=== PATIENT | male | born 1945 ===

== ENCOUNTER 2025-01-03 11:44 | Inpatient (IN) ==
--- NOTE | 2025-01-03 12:05 | Emergency Department Note ---
Impression & Plan LeFort I fracture, Contusion of face, Anemia ED Provider Note NAME: DEJA BARR AGE: 79 SEX: M : 1945 ARRIVES VIA: Walk-In INFORMANT: Patient ED PROVIDER(S): Ty Hawk DO CHIEF COMPLAINT: [place] I fracture HPI: Patient is a 79-year-old male who presents to the ER following a fall on 30 December. He fell onto his face while [place] of the [place] in [facility]. He was seen evaluated found to have multiple facial fractures. He eventually was able to fly home and he was instructed once he got home to go to the ER. He came in last night and was found to have a [place] I fracture following CTs being performed. Current recommendation was to go to surgery. He notes he had to get home to take care of several things and then would come back. He came back today. He notes he only has pain when he tries to bite down and put his mouth/teeth together. ADDITIONAL HISTORY OBTAINED: Per HPI Chronic Medical/Social Conditions Affecting Care: Per HPI PAST MEDICAL HISTORY:See Below PAST SURGICAL HISTORY:See Below FAMILY HISTORY:See Below SOCIAL HISTORY:See Below HOME MEDICATIONS:See Below ALLERGIES:See Below VITALS:See Below PHYSICAL EXAMINATION: GENERAL: Sitting up in bed, alert, well appearing, well nourished, no distress, non-toxic EYE EXAM: normal conjunctiva. PERRL and EOM's grossly intact. FACE: Bruising over the left lower jaw track down the left side neck OROPHARYNX: no exudate, no erythema, lips, buccal mucosa, and tongue normal and mucous membranes are moist NECK: supple, no nuchal rigidity, no adenopathy, non-tender LUNGS: Clear to auscultation. Normal chest wall mechanics HEART: no murmurs, S1 normal and S2 normal ABDOMEN: abdomen soft, non-tender, normo-active bowel sounds, no masses, no rebound or guarding. SKIN: no rashes and no bruising UPPER EXTREMITIES: upper extremities are grossly normal. LOWER EXTREMITIES: No pitting edema. NEURO EXAM: Normal sensorium, cranial nerves II-XII grossly intact, normal speech, no gross weakness of arms, no gross weakness of legs. MEDICAL DECISION MAKING: Patient is a 79-year-old male who was seen evaluated yesterday and found to have a [place] fracture. He was seen by Dr. Krish Alexander. Recommendation was to go to the OR. He wanted to come back today as he had just gotten home from a 12- day trip yesterday. He came back in. I did notify Dr. Alexander. Blood work was obtained. Labs show mild leukopenia at 4.3 and a mild anemia at 10.6. BMP with LFTs bilirubin is unremarkable. Case was discussed with the hospitalist Dr. Amos for further evaluation management treatment. Consults/Care Managements Discussions: Per [facility] Triage Nursing notes reviewed. Limited review of prior medical records performed Vital Signs: reviewed and remarkable for no significant abnormalities Differential diagnosis: Differential diagnoses include major intracranial, cervical, spinal, thoracic, abdominal, pelvic and neurologic injury. Fracture, contusion, sprain, strain, laceration, abrasions included as well. ER treatment provided: See below Diagnostics interpreted by me include EKG and cardiac monitoring as listed below: -Cardiac Monitoring: An order was placed for continuous cardiac monitoring. The monitor shows a rate of 70 with sinus rhythm. -ECG: Sinus rhythm rate 69 Normal axis No PVCs QTc 390 Septal Q waves -Laboratory studies:Interpreted by me as stated above in MDM and shown below. Imaging studies: Xrays: As interpreted by me:none CTs show: Reviewed from yesterday Procedures:none Critical Care: None Past Med/Surg History Problem List (Updated 01/03/25 @ 13:12 by Ty Hawk DO) Anemia (Acute) Contusion of face (Acute) LeFort I fracture (Acute) Hypertension (Chronic) Diabetes mellitus, type II (Chronic) Dyslipidemia (Chronic) LAWSON (obstructive sleep apnea) (Chronic) Chest pain Social History Smoking Status: Never smoker Preferred Language: Cymraes Feels Safe at Home: Yes Allergies Allergies Allergy/AdvReac Type Severity Reaction Status Date / Time No Known Allergies Allergy Unverified 01/02/25 17:15 Home Meds Home Medications Medication Instructions Recorded Confirmed aspirin 81 mg tablet,delayed 81 mg PO QAM ##0 11/25/12 01/03/25 release atenolol 25 mg tablet 12.5 mg PO HS #0 tabs 11/25/12 01/03/25 metformin 500 mg tablet,extended 500 mg PO BID #0 tabs 11/25/12 01/03/25 release 24 hr [id number] 300 mcg-K 60 1 tab PO QAM #0 tabs 11/25/12 01/03/25 mcg-lycop 600 mcg-lutein 300 mcg tablet (Centrum Silver Men) losartan 25 mg tablet 12.5 mg PO QDL 30 days #15 tabs 03/01/16 01/03/25 atorvastatin 40 mg tablet 40 mg PO HS 01/02/25 01/03/25 cyanocobalamin (vitamin B-12) 1,000 mcg PO QDL 01/02/25 01/03/25 1,000 mcg tablet (Vitamin B-12) empagliflozin 10 mg tablet 10 mg PO QAM 01/02/25 01/03/25 (Jardiance) nitroglycerin 0.4 mg sublingual 0.4 mg sublingual DIRECTED PRN 01/02/25 01/03/25 tablet Chest Pain Results & Data (ED) Vital Signs Vital Signs - 24 hr 01/03/25 11:50 Temperature 36.2 C L Temperature Source Temporal Artery Scan Pulse Rate 71 Respiratory Rate 18 Respiratory Effort / Characteristics Non-Labored Spontaneous Respiratory Depth Normal Respiratory Pattern Regular Blood Pressure 123/65 Blood Pressure Mean 84 Pulse Oximetry 100 Oxygen Delivery Method Room Air Sepsis Recent Fever Within 48 Hours No Sepsis New/Unexplained Change in Mental Status N/A Sepsis Action Taken by Nursing No Action Required Laboratory Data 01/03/25 12:20 01/03/25 12:20 Lab Results 01/03/25 Range/Units 12:20 WBC 4.39 L (4.8-10.8) K/ul RBC 4.03 L (4.70-6.10) M/uL Hgb 10.6 L (14.0-18.0) g/dl Hct 33.7 L (42.0-52.0) % MCV 83.6 (80.0-100.0) fL MCH 26.3 (25.0-34.0) pg MCHC 31.5 L (32.0-36.0) g/dL RDW Std Deviation 44.3 (36.4-46.3) fL RDW Coeff of Johan 14.7 H (11.5-14.5) % Plt Count 155 (130-400) K/uL MPV 11.9 (9.4-12.4) fL Immature Gran % (Auto) 0.2 % Neut % (Auto) 64.5 % Lymph % (Auto) 21.9 % Crenshaw % (Auto) 10.0 % Eos % (Auto) 2.3 % Baso % (Auto) 1.1 % Neut # (Auto) 2.83 (1.40-6.50) K/uL Lymph # (Auto) 0.96 L (1.20-3.40) K/uL Crenshaw # (Auto) 0.44 (0.11-0.59) K/uL Eos # (Auto) 0.10 (0.00-0.50) K/uL Baso # (Auto) 0.05 (0.00-0.20) K/uL Immature Gran # (Auto) 0.01 (0.01-0.20) K/uL Sodium 134 L (136-145) mmol/L Potassium 4.2 (3.5-5.1) mmol/L Chloride 101 (98-107) mmol/L Carbon Dioxide 28 (21-32) mmol/L Anion Gap 5 (3-11) BUN 25 H (6-23) mg/dl Creatinine 1.27 (0.6-1.4) mg/dl Est Cr Clr Drug Dosing 34.9 ml/min eGFR 57.83 BUN/Creatinine Ratio 19.7 (10-20) Glucose 275 H (70-99(Fasting)) mg/dl Calcium 9.1 (8.6-10.3) mg/dl Total Bilirubin 0.4 (0.2-1.0) mg/dl AST 29 (13-39) U/L ALT 27 (7-52) U/L Alkaline Phosphatase 52 (34-104) U/L Total Protein 6.6 (6.0-8.3) gm/dl Albumin 3.6 (3.4-5.0) gm/dl Globulin 3.0 (2.5-4.0) gm/dl Albumin/Globulin Ratio 1.2 (0.9-2) Discharge Plan Visit Data Chief Complaint: Facial Injury/Pain Stated Complaint: [facility] GANESH REFERRAL ED Provider: Ty Hawk Discharge Problem: LeFort I fracture, Contusion of face, Anemia Condition: Fair Forms Stand Alone Forms: My [facility] Prescriptions Prescriptions: No Action aspirin 81 mg Tablet,Delayed Release (Dr/Ec) 81 mg PO QAM Qty: 0 Centrum Silver Men [phone] mcg Tablet 1 tab PO QAM Qty: 0 atenolol 25 mg Tablet 12.5 mg PO HS Qty: 0 metformin 500 mg Tablet Extended Release 24 Hr 500 mg PO BID Qty: 0 Rx Instructions: W/ Lunch and Dinner losartan 25 mg Tablet 12.5 mg PO QDL 30 Days Qty: 15 atorvastatin 40 mg tablet 40 mg PO HS cyanocobalamin (vitamin B-12) [Vitamin B-12] 1,000 mcg Tablet 1,000 mcg PO QDL nitroglycerin 0.4 mg tablet, sublingual 0.4 mg sublingual DIRECTED PRN (Reason: Chest Pain) Jardiance 10 mg tablet 10 mg PO QAM Referrals Referrals: Pam Barr MD [Primary Care Provider] - Discharge Problem: LeFort I fracture Qualifiers: Encounter type: initial encounter Fracture type: closed Qualified Code(s): S 02.411A - LeFort I fracture, initial encounter for closed fracture Contusion of face Qualifiers: Encounter type: initial encounter Qualified Code(s): S00.83XA - Contusion of other part of head, initial encounter Anemia Qualifiers: Anemia type: unspecified type Qualified Code(s): D64.9 - Anemia, unspecified
--- NOTE | 2025-01-03 12:43 | History & Physical Report ---
Date of Service January 03, 2025 Assessment & Plan (1) LeFort I fracture: Plan 79M with PMH including CAD, NIDDM, HLD, LAWSON not on CPAP, who presents with facial fracture. #LeFort I fx -Secondary to mechanical fall -CT confirming fracture -ED d/w surgery who plans for OR tomorrow Plan -For OR tomorrow. NPO after MN -Hold home ASA -Pre op clearance as below #Pre op evaluation -METS >3 -RCRI: 1; 1.1% major cardiac event -Patient is low risk for surgery -He has non obstructive CAD and is very concerned about his cardiac history, will ask cardio to evaluate -Waiting on EKG -Waiting on routine labs #CAD -History of balloon angioplasty in . No stent was placed -Recent [facility] 2024 in [place], non obstructive CAD per patient. no report available -TTE 04/05/24, normal EF -Follows with cardio as OP, appreciate input -Holding home ASA for OR tomorrow -Continue statin and atenolol #NIDDM -On jardiance and metformin BID -Holding metformin for now -SSI BGM ACHS #HLD #LAWSON, not on CPAP History of Present Illness Chief Complaint: LeFort I fracture Primary Care Provider: Pam Barr MD Mr. Barr is a pleasant 79M with PMH including CAD, NIDDM, HLD, LAWSON not on CPAP, who presents with facial fracture. Patient was in [facility] where he suffered a mechanical fall while going down the elevator. Denies prodromal symptoms. No LOC. He did land on his face. In [facility], he went to a trauma center and was evaluated by ENT who did not recommend surgery at that time. He immediately flew home and then presented to [facility] yesterday for second opinion. Yesterday, ED d/w surgery who recommended surgery. Patient was not ready for surgery and went home last evening. He presents today, now agreeable for surgery. Patient denies F/C, CP, palpitations, SOB, dyspnea, abd pain, N/V/D Allergies Allergy/AdvReac Type Severity Reaction Status Date / Time No Known Allergies Allergy Unverified 01/02/25 17:15 Home Medications Medication Instructions Recorded Confirmed Type aspirin 81 mg tablet,delayed 81 mg PO QAM ##0 11/25/12 01/03/25 History release atenolol 25 mg tablet 12.5 mg PO HS #0 tabs 11/25/12 01/03/25 History metformin 500 mg tablet,extended 500 mg PO BID #0 tabs 11/25/12 01/03/25 History release 24 hr ibbttcaz-ts-[id number] 300 mcg-K 60 1 tab PO QAM #0 tabs 11/25/12 01/03/25 History mcg-lycop 600 mcg-lutein 300 mcg tablet (Centrum Silver Men) losartan 25 mg tablet 12.5 mg PO QDL 30 days #15 tabs 03/01/16 01/03/25 History atorvastatin 40 mg tablet 40 mg PO HS 01/02/25 01/03/25 History cyanocobalamin (vitamin B-12) 1,000 mcg PO QDL 01/02/25 01/03/25 History 1,000 mcg tablet (Vitamin B-12) empagliflozin 10 mg tablet 10 mg PO QAM 01/02/25 01/03/25 History (Jardiance) nitroglycerin 0.4 mg sublingual 0.4 mg sublingual DIRECTED PRN 01/02/25 01/03/25 History tablet Chest Pain Past Med/Surg History Problem List Contusion of face (Acute) LeFort I fracture (Acute) Hypertension (Chronic) Diabetes mellitus, type II (Chronic) Dyslipidemia (Chronic) LAWSON (obstructive sleep apnea) (Chronic) Chest pain Social History Smoking Status: Never smoker Preferred Language: Togolese Feels Safe at Home: Yes Review of Systems Review of Systems: 14 point ROS neg Physical Exam Physical Exam: Vitals and labs reviewed General: Well appearing, NAD HEENT: EOMI, PERRLA. Ecchymoses over maxillary bone. no obvious deformity Neck: Supple Cardiac: RRR no rubs gallops or murmurs Lungs: CTA no rhonchi wheezing or rales Abd: S NT ND BS positive MSK: Full ROM. No obvious deformities Ext: No Edema cyanosis Skin: Warm, Dry Neuro: AOx3 No focal deficits. Psych: Normal Mood Results & Data Results & Data Vital Signs (Past 12 Hours) Vital Signs Temp Pulse Resp BP Pulse Ox O2 Del Method 01/03/25 11:50 36.2 C L 71 18 123/65 100 Room Air Diagnostic Findings CT SCAN OF THE FACIAL BONES WITHOUT IV CONTRAST CLINICAL HISTORY: Fall. Facial injury. COMPARISON STUDY: No priors TECHNIQUE: High-resolution CT scan of the facial bones is performed. Images are reviewed in the axial, sagittal, and coronal planes. IV contrast was not administered for this examination. A dose lowering technique was utilized adhering to the principles of ALARA. FINDINGS: The skeletal structures are osteopenia. There are comminuted bilateral pterygoid plate fractures. There is acute nondisplaced fracture through the anterior and posterior manning of the left maxillary sinus. This also involves the medial wall of the sinus. Acute fracture is also seen through the anterior, lateral, and medial wall of the right maxillary sinus. Fracture extends through the posterior aspect of the bony nasal septum. This is consistent with a LeFort I fracture. The bony orbits are intact and the orbital contents are within normal limits. The zygomatic arches and nasal bones are preserved. The mandible is intact and the temporomandibular joints are maintained. There are bilateral mastoid effusions. Blood products fill the left maxillary antrum. There is [id number] mucosal thickening in the right maxillary sinus as well as the ethmoid sinuses. Trace mucosal thickening is seen in the frontal sinuses. The visualized calvarium and upper cervical spine are maintained. Partially imaged brain parenchyma is within normal limits. IMPRESSION: 1. There are comminuted fractures involving both maxillary sinuses, the bilateral pterygoid plates, and the bony nasal septum. This is consistent with a LeFort I fracture complex. 2. The bony orbits are intact. 3. Blood products fill the left maxillary sinus. 4. Additional findings as above. Code Status & VTE Plan Code Status full VTE Prophylaxis Plan VTE Prophylaxis will be ordered: Yes (1) LeFort I fracture Encounter type: initial encounter Fracture type: closed Qualified Code(s): S02.411A - LeFort I fracture, initial encounter for closed fracture
[2025-01-03 12:46] LABS: Hematocrit (blood only) 33.7 % (42.0-52.0); Hemoglobin 10.6 g/dl (14.0-18.0); Immature Granulocytes # (auto) 0.01 K/uL (0.01-0.20); Immature Granulocytes % (auto) 0.2 %; Mean Corpuscular Hemoglobin 26.3 pg (25.0-34.0); Mean Corpuscular Volume 83.6 fL (80.0-100.0); Platelet Count 155 K/uL (130-400); RDW Standard Deviation 44.3 fL (36.4-46.3); Red Blood Count 4.03 M/uL (4.70-6.10); White Blood Count 4.39 K/ul (4.8-10.8)
[2025-01-03 13:00] LABS: Alanine Aminotransferase 27.0 U/L (7-52); Albumin Globulin Ratio 1.2 (0.9-2); Alkaline Phosphatase 52.0 U/L (34-104); Anion Gap 5.0 (3-11); Bilirubin,Total 0.4 mg/dl (0.2-1.0); Blood Urea Nitrogen 25.0 mg/dl (6-23); Calcium 9.1 mg/dl (8.6-10.3); Carbon Dioxide 28.0 mmol/L (21-32); Chloride 101.0 mmol/L (98-107); Creatinine Clr Calc Pharmacy 34.9 ml/min; Globulin 3.0 gm/dl (2.5-4.0); Glucose 275.0 mg/dl (70-99(Fasting)); Potassium 4.2 mmol/L (3.5-5.1); Sodium 134.0 mmol/L (136-145); Total Protein 6.6 gm/dl (6.0-8.3)
[2025-01-03] MEDS ORDERED: ONDANSETRON INJ 2 MG/ML 2 ML VIAL IV PRN (15:35)
[2025-01-03] MEDS ORDERED: CARBOHYDRATES FOR HYPOGLYCEMIA PO PRN (15:35)
[2025-01-03] MEDS ORDERED: GLUCOSE 40% GEL 15 GM TUBE PO PRN (15:35)
[2025-01-03] MEDS ORDERED: GLUCOSE 10 TAB/TUBE PO PRN (15:35)
[2025-01-03] MEDS ORDERED: GLUCAGON FOR INJ 1 MG VIAL SQ PRN (15:35)
[2025-01-03] MEDS ORDERED: DEXTROSE 50% 50 ML SYRINGE IV PRN (15:35)
[2025-01-03] MEDS: ACETAMINOPHEN 325 MG TAB PO PRN (17:03)
[2025-01-03] MEDS: INSULIN ASPART PER UNIT CHARGE SC SCH (17:46)
[2025-01-03] MEDS: ATORVASTATIN 40 MG TAB PO SCH (21:33)
[2025-01-03] MEDS: ATENOLOL 25 MG TABLET PO SCH (21:33)
[2025-01-03] MEDS: HEPARIN SOD 5,000 UNIT/0.5 ML VIAL SQ SCH (21:34)
--- NOTE | 2025-01-03 21:35 | Oral/Maxillofacial Consult ---
Date of Consultation January 03, 2025 Assessment & Plan (1) LeFort I fracture: (2) Contusion of face: (3) Anemia: (4) Edentulous maxilla: History of Present Illness Attending Physician: Jose Harding, DO History of Present Illness DO CHIEF COMPLAINT: [place] the country sustained a [place] I fracture HPI: Patient is a 79-year-old male who presents to the ER following a fall on 30 December. He fell onto his face while out of the country in [facility]. He was seen evaluated found to have multiple facial fractures. He eventually was able to fly home and he was instructed once he got home to go to the ER. He came in last night and was found to have a Le Fort I fracture following CTs being performed. Current recommendation was to go to surgery. He notes he had to get home to take care of several things and then would come back. He came back today. He notes he only has pain when he tries to bite down and put his mouth/teeth together. I evaluated him in the ER last night with his and discussed with his son in [place] who is an anesthesiologist. Oral Maxillary Facial Review Classic LeFort I clean fracture with mobility of the maxilla, He has a stable lower jaw with a good ROM. Maxilla is not stable can move it lateral and superior. Denture fits well but he does not have a stable occlusion Nasal bleeding stopped, nose is not fractured TMJ is stable with good ROM Ecchymosis left face and palate. Admission to medical, for OR January 04 in AM for open reduction with plate fixation. I will follow as out patient, soft non chew diet for at least 4 weeks. Reviewed the surgery to repair the Maxillary fracture. Treatment Plan: Set up with general anesthesia in hospitall due to complexity of the procedure I reviewed the treatment plan and consent with the patient and and son Momo (by phone) Understanding was expressed. Time was given for questions regarding the surgery, risks and post op care. Discussed alternative to treatment--procedure as planned, Do not do surgery Risks discussed: Bleeding,Pain,swelling,infection delayed healing, nerve injury to face,lips,tongue,chin area which could be permanent (rare). TMJ, jaw stiffness, change in bite (rare), ear pain (referred). Sinus problems like fistula or infection. Plate removal, change in bite, need for new or reline upper denture Soft diet, oral care, follow up Home care reviewed: Reviewed tooth brushing, rinsing, follow up care with Dr Alexander. Diet=ljyhz-[id number]-zfkm dental. Discussed activity level, driving/work while on Rx pain Meds. CT SCAN OF THE FACIAL BONES WITHOUT IV CONTRAST CLINICAL HISTORY: Fall. Facial injury. FINDINGS: The skeletal structures are osteopenia. There are comminuted bilateral pterygoid plate fractures. There is acute nondisplaced fracture through the anterior and posterior manning of the left maxillary sinus. This also involves the medial wall of the sinus. Acute fracture is also seen through the anterior, lateral, and medial wall of the right maxillary sinus. Fracture extends through the posterior aspect of the bony nasal septum. This is consistent with a LeFort I fracture. The bony orbits are intact and the orbital contents are within normal limits. The zygomatic arches and nasal bones are preserved. The mandible is intact and the temporomandibular joints are maintained. There are bilateral mastoid effusions. Blood products fill the left maxillary antrum. There is nmfi-qh-wfxccbgo mucosal thickening in the right maxillary sinus as well as the ethmoid sinuses. Trace mucosal thickening is seen in the frontal sinuses. The visualized calvarium and upper cervical spine are maintained. Partially imaged brain parenchyma is within normal limits. IMPRESSION: 1. There are comminuted fractures involving both maxillary sinuses, the bilateral pterygoid plates, and the bony nasal septum. This is consistent with a LeFort I fracture complex. 2. The bony orbits are intact. 3. Blood products fill the left maxillary sinus. 4. Additional findings as above. Surgery to be set up Thursday AM in [facility] main OR PHYSICAL EXAMINATION: GENERAL: Sitting up in bed, alert, well appearing, well nourished, no distress, non-toxic EYE EXAM: normal conjunctiva. PERRL and EOM's grossly intact. FACE: Bruising over the left lower jaw track down the left side neck, has upper denture, occlusion not stable vertical instability with movement, Maxilla is not solid as expected with the LeFort I fractre OROPHARYNX: no exudate, no erythema, lips, buccal mucosa, and tongue normal and mucous membranes are moist NECK: supple, no nuchal rigidity, no adenopathy, non-tender LUNGS: Clear to auscultation. Normal chest wall mechanics HEART: no murmurs, S1 normal and S2 normal ABDOMEN: abdomen soft, non-tender, normo-active bowel sounds, no masses, no rebound or guarding. SKIN: no rashes and no bruising UPPER EXTREMITIES: upper extremities are grossly normal. LOWER EXTREMITIES: No pitting edema. NEURO EXAM: Normal sensorium, cranial nerves II-XII grossly intact, normal speech, no gross weakness of arms, no gross weakness of legs. MEDICAL DECISION MAKING FROM ER ON JANUARY 02 at 6:15 pm Patient is a 79-year-old male who was seen evaluated yesterday and found to have a Le Fort fracture. He was seen by Dr. Krish Alexander. Recommendation was to go to the OR. He wanted to come back today as he had just gotten home from a 12- day trip yesterday. He came back in. I did notify Dr. Alexander. Blood work was obtained. Labs show mild leukopenia at 4.3 and a mild anemia at 10.6. BMP with LFTs bilirubin is unremarkable. Case was discussed with the hospitalist Dr. Amos for further evaluation management treatment. Diagnostics interpreted by me include EKG and cardiac monitoring as listed below: -Cardiac Monitoring: An order was placed for continuous cardiac monitoring. The monitor shows a rate of 70 with sinus rhythm. -ECG: Sinus rhythm rate 69 Normal axis No PVCs QTc 390 Septal Q waves Past Med/Surg History Problem List (Updated 01/03/25 @ 13:12 by Ty Hawk DO) Anemia (Acute) Contusion of face (Acute) LeFort I fracture (Acute) Hypertension (Chronic) Diabetes mellitus, type II (Chronic) Dyslipidemia (Chronic) LAWSON (obstructive sleep apnea) (Chronic) Chest pain Social History Smoking Status: Never smoker Preferred Language: Ethiopian Feels Safe at Home: Yes Allergies Allergies Allergy/AdvReac Type Severity Reaction Status Date / Time No Known Allergies Allergy Unverified 01/02/25 17:15 Home Meds Home Medications Medication Instructions Recorded Confirmed aspirin 81 mg tablet,delayed 81 mg PO QAM ##0 11/25/12 01/03/25 release atenolol 25 mg tablet 12.5 mg PO HS #0 tabs 11/25/12 01/03/25 metformin 500 mg tablet,extended 500 mg PO BID #0 tabs 11/25/12 01/03/25 release 24 hr egsqjxfx-qp-zqtxj 300 mcg-K 60 1 tab PO QAM #0 tabs 11/25/12 01/03/25 mcg-lycop 600 mcg-lutein 300 mcg tablet (Centrum Silver Men) losartan 25 mg tablet 12.5 mg PO QDL 30 days #15 tabs 03/01/16 01/03/25 atorvastatin 40 mg tablet 40 mg PO HS 01/02/25 01/03/25 cyanocobalamin (vitamin B-12) 1,000 mcg PO QDL 01/02/25 01/03/25 1,000 mcg tablet (Vitamin B-12) empagliflozin 10 mg tablet 10 mg PO QAM 01/02/25 01/03/25 (Jardiance) nitroglycerin 0.4 mg sublingual 0.4 mg sublingual DIRECTED PRN 01/02/25 01/03/25 tablet Chest Pain Results & Data (ED) Vital Signs - 24 hr 01/03/2511:50 Temperature 36.2 C L Temperature Source Temporal Artery Scan Pulse Rate 71 Respiratory Rate 18 Respiratory Effort / Characteristics Non-Labored Spontaneous Respiratory Depth Normal Respiratory Pattern Regular Blood Pressure 123/65 Blood Pressure Mean 84 Pulse Oximetry 100 Oxygen Delivery Method Room Air Sepsis Recent Fever Within 48 Hours No Sepsis New/Unexplained Change in Mental Status N/A Sepsis Action Taken by Nursing No Action Required Laboratory Data Lab Results 01/03/25 Range/Units 12:20 WBC 4.39 L (4.8-10.8) K/ul RBC 4.03 L (4.70-6.10) M/uL Hgb 10.6 L (14.0-18.0) g/dl Hct 33.7 L (42.0-52.0) % MCV 83.6 (80.0-100.0) fL MCH 26.3 (25.0-34.0) pg MCHC 31.5 L (32.0-36.0) g/dL RDW Std Deviation 44.3 (36.4-46.3) fL RDW Coeff of Johan 14.7 H (11.5-14.5) % Plt Count 155 (130-400) K/uL MPV 11.9 (9.4-12.4) fL Immature Gran % (Auto) 0.2 % Neut % (Auto) 64.5 % Lymph % (Auto) 21.9 % Gulf % (Auto) 10.0 % Eos % (Auto) 2.3 % Baso % (Auto) 1.1 % Neut # (Auto) 2.83 (1.40-6.50) K/uL Lymph # (Auto) 0.96 L (1.20-3.40) K/uL Gulf # (Auto) 0.44 (0.11-0.59) K/uL Eos # (Auto) 0.10 (0.00-0.50) K/uL Baso # (Auto) 0.05 (0.00-0.20) K/uL Immature Gran # (Auto) 0.01 (0.01-0.20) K/uL Sodium 134 L (136-145) mmol/L Potassium 4.2 (3.5-5.1) mmol/L Chloride 101 (98-107) mmol/L Carbon Dioxide 28 (21-32) mmol/L Anion Gap 5 (3-11) BUN 25 H (6-23) mg/dl Creatinine 1.27 (0.6-1.4) mg/dl Est Cr Clr Drug Dosing 34.9 ml/min eGFR 57.83 BUN/Creatinine Ratio 19.7 (10-20) Glucose 275 H (70-99(Fasting)) mg/dl Calcium 9.1 (8.6-10.3) mg/dl Total Bilirubin 0.4 (0.2-1.0) mg/dl AST 29 (13-39) U/L ALT 27 (7-52) U/L Alkaline Phosphatase 52 (34-104) U/L Total Protein 6.6 (6.0-8.3) gm/dl Albumin 3.6 (3.4-5.0) gm/dl Globulin 3.0 (2.5-4.0) gm/dl Albumin/Globulin Ratio 1.2 (0.9-2) LeFort I fracture Fracture type: closed Qualified Code(s): S02.411A - LeFort I fracture, initial encounter for closed fracture Contusion of face Qualifiers: S00.83XA - Contusion of other part of head, initial encounter Anemia Qualifiers : D64.9 - Anemia, unspecified Allergies Allergy/AdvReac Type Severity Reaction Status Date / Time No Known Allergies Allergy Unverified 01/02/25 17:15 Home Medications Medication Instructions Recorded Confirmed Type aspirin 81 mg tablet,delayed 81 mg PO QAM ##0 11/25/12 01/03/25 History release atenolol 25 mg tablet 12.5 mg PO HS #0 tabs 11/25/12 01/03/25 History metformin 500 mg tablet,extended 500 mg PO BID #0 tabs 11/25/12 01/03/25 History release 24 hr qfoqarto-[id number] 300 mcg-K 60 1 tab PO QAM #0 tabs 11/25/12 01/03/25 History mcg-lycop 600 mcg-lutein 300 mcg tablet (Centrum Silver Men) losartan 25 mg tablet 12.5 mg PO QDL 30 days #15 tabs 03/01/16 01/03/25 History atorvastatin 40 mg tablet 40 mg PO HS 01/02/25 01/03/25 History cyanocobalamin (vitamin B-12) 1,000 mcg PO QDL 01/02/25 01/03/25 History 1,000 mcg tablet (Vitamin B-12) empagliflozin 10 mg tablet 10 mg PO QAM 01/02/25 01/03/25 History (Jardiance) nitroglycerin 0.4 mg sublingual 0.4 mg sublingual DIRECTED PRN 01/02/25 01/03/25 History tablet Chest Pain Patient History Social History Smoking Status: Never smoker Second Hand Exposure: No; Do You Dip or Chew Tobacco: No; Hx Alcohol Use: Yes Alcohol type: beer, wine and hard liquor Hx Substance Use: No Preferred Language: Ethiopian 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 Beliefs That Will Affect Care: None Current Living Situation: Spouse Other Information That Helps Us Care for You: No Feels Safe at Home: Yes Safety Concerns: Feels Safe At This Time Assistive Devices: Denture - Upper and Glasses Results & Data Vital Signs (Past 12 Hours) Vital Signs Temp Pulse Pulse Resp BP BP Pulse Ox 01/03/25 18:43 36.8 C 62 16 147/59 H 99 01/03/25 18:00 68 17 98 01/03/25 17:09 63 19 98 01/03/25 17:00 124/67 01/03/25 16:16 01/03/25 16:16 60 16 118/64 98 01/03/25 16:03 63 18 118/64 99 01/03/25 15:28 60 01/03/25 15:00 68 20 126/61 99 01/03/25 14:02 58 L 01/03/25 14:00 61 17 126/61 99 01/03/25 13:29 57 L 16 164/62 H 99 01/03/25 13:29 59 L 14 94 01/03/25 11:50 36.2 C L 71 18 123/65 100 O2 Del Method 01/03/25 18:43 Room Air 01/03/25 18:00 01/03/25 17:09 01/03/25 17:00 01/03/25 16:16 Room Air 01/03/25 16:16 Room Air 01/03/25 16:03 01/03/25 15:28 01/03/25 15:00 01/03/25 14:02 01/03/25 14:00 01/03/25 13:29 Room Air 01/03/25 13:29 Room Air 01/03/25 11:50 Room Air PG Care Time/CCT Total # of Minutes Spent Total Time Spent with Patient: Total time spent is greater than 50% in coordination of care (as documented) at patient's floor/unit and/or counseling patient: Coding Level of Care Code 58375 OFFICE CONSULT LVL 55M Diagnoses LeFort I fracture S02.411A Encounter type: initial encounter Fracture type: closed Contusion of face S00.83XA Encounter type: initial encounter Anemia D64.9 Anemia type: unspecified type Edentulous maxilla K08.409 CPT Codes OPEN TREAT MOUTH ROOF FRACTURE (LEFORT 1 TYPE) - 31546 ([id number]) (1) LeFort I fracture Encounter type: initial encounter Fracture type: closed Qualified Code(s): S02.411A - LeFort I fracture, initial encounter for closed fracture (2) Contusion of face Encounter type: initial encounter Qualified Code(s): S00.83XA - Contusion of other part of head, initial encounter (3) Anemia Anemia type: unspecified type Qualified Code(s): D64.9 - Anemia, unspecified
[2025-01-04] MEDS ORDERED: PROPOFOL IV EMULSION 10 MG/ML 20 ML VIAL IV ONE (06:57)
[2025-01-04] MEDS ORDERED: ONDANSETRON INJ 2 MG/ML 2 ML VIAL ONE (06:57)
[2025-01-04] MEDS ORDERED: DEXAMETHASONE SOD INJ 4 MG/ML VIAL ONE (06:57)
[2025-01-04] MEDS ORDERED: LIDOCAINE 2% 2 ML VIAL/AMP(20MG/ML) INFIL ONE (06:57)
[2025-01-04] MEDS ORDERED: ROCURONIUM BROMIDE 10 MG/ML 5 ML VIAL IV ONE (06:57)
[2025-01-04] MEDS: LACTATED RINGER'S 1,000 ML IV SCH (07:05)
[2025-01-04] MEDS ORDERED: OXYMETAZOLINE 0.05% 30 ML BTL ONE (07:09)
[2025-01-04] MEDS ORDERED: LIDOCAINE 2% JELLY 5 ML TUBE EXT ONE (07:09)
--- NOTE | 2025-01-04 07:09 | Anesthesiology Consultation ---
Date of Service January 04, 2025 Assessment & Plan ASA ASA3 Proposed Anesthesia Anesthesia Type: General Risk / Benefits Reviewed With: PT / POA / Parent / Guardian, Accepts Plan and Informed Consent Obtained History Surgery Operation Date: 01/04/25 07:15 Proposed Procedures p Open Reduction Maxillary Fracture - Krish Reyes Benjamin, DMD Height/Weight Height: 5 ft 6 in Weight: 51.5 kg Allergies Allergy/AdvReac Type Severity Reaction Status Date / Time No Known Allergies Allergy Unverified 01/02/25 17:15 Medications Home Medications Medication Instructions Recorded Confirmed Last Taken aspirin 81 mg tablet,delayed 81 mg PO QAM ##0 11/25/12 01/03/25 12/30/24 release atenolol 25 mg tablet 12.5 mg PO HS #0 tabs 11/25/12 01/03/25 12/30/24 metformin 500 mg tablet,extended 500 mg PO BID #0 tabs 11/25/12 01/03/25 12/30/24 release 24 hr ewelxmts-[id number] 300 mcg-K 60 1 tab PO QAM #0 tabs 11/25/12 01/03/25 12/30/24 mcg-lycop 600 mcg-lutein 300 mcg tablet (Centrum Silver Men) losartan 25 mg tablet 12.5 mg PO QDL 30 days #15 tabs 03/01/16 01/03/25 12/30/24 atorvastatin 40 mg tablet 40 mg PO HS 01/02/25 01/03/25 01/01/25 cyanocobalamin (vitamin B-12) 1,000 mcg PO QDL 01/02/25 01/03/25 12/30/24 1,000 mcg tablet (Vitamin B-12) empagliflozin 10 mg tablet 10 mg PO QAM 01/02/25 01/03/25 01/02/25 (Jardiance) nitroglycerin 0.4 mg sublingual 0.4 mg sublingual DIRECTED PRN 01/02/25 01/03/25 Unknown tablet Chest Pain Active Medications Generic Name Dose Route Start Last Admin Trade Name Freq PRN Reason Stop Dose Admin Acetaminophen 650 mg 01/03/25 15:35 01/04/25 02:55 Acetaminophen 325 Mg Tab PO 02/02/25 15:34 650 mg Q4H PRN Administration pain/fever Atenolol 12.5 mg 01/03/25 21:00 01/03/25 21:33 Atenolol 25 Mg Tablet PO 02/02/25 20:59 12.5 mg HS SOPHIE Administration Atorvastatin Calcium 40 mg 01/03/25 21:00 01/03/25 21:33 Atorvastatin 40 Mg Tab PO 02/02/25 20:59 40 mg HS SOPHIE Administration Heparin Sodium (Porcine) 5,000 units 01/03/25 21:00 01/03/25 21:34 Heparin Sod 5,000 Unit/0.5 Ml Vial SQ 02/02/25 20:59 Not Given Q12 SOPHIE Lactated Ringer's 1,000 mls @ 15 mls/hr 01/04/25 07:00 01/04/25 07:05 Lr IV 01/07/25 06:59 15 mls/hr .Q24H SOPHIE Administration Insulin Aspart 0 units 01/03/25 16:30 01/03/25 22:12 Insulin Aspart Per Unit Charge SC 02/02/25 16:29 Not Given ACHS SOPHIE Miscellaneous 1 each 01/03/25 16:00 01/03/25 23:27 Order Awaiting Action Empagliflozin 10 Mg Tab N/A 02/02/25 15:59 Not Given QS SOPHIE NPO Date Last Intake of Fluids: 01/04/25 Time Last Intake of Fluids: 03:00 Last Intake of Fluids Comment: sip with meds Date Last Intake of Solids: 01/03/25 Time Last Intake of Solids: 19:00 Exercise / Class Metabolic Activity II 4-5 Yardwork/Stairs/Walk up hill Past Anesthesia History No Hx of Anesthesia Complications and No Family Hx of Anesthesia Complications History of PONV No Hx of PONV and No Hx of Motion Sickness Social History Smoking Status: Never smoker Do You Dip or Chew Tobacco: No Hx Alcohol Use: Yes Alcohol type: beer, wine and hard liquor alcohol intake frequency: holidays/special occasions only Hx Substance Use: No substance use type: does not use Review of Systems denies fever/cough/ colds/ chest pain/ SOB/ LAWSON denies LAWSON Physical Exam Vital Signs Last Vital Signs Temp 36.7 C 01/04/25 06:44 Pulse 61 01/04/25 06:44 Resp 15 01/04/25 06:44 BP 125/62 01/04/25 06:44 Pulse Ox 99 01/04/25 06:44 O2 Del Method Room Air 01/04/25 06:44 ENMT Mouth: + small oral opening; no TMJ abnormality and no dentition abnormality Thyromental Distance: > or= 3.5 Finger Breadths Mallampati Class: IV Neck neck extension not limited Respiratory normal respiratory effort; no respiratory distress Auscultation: lungs clear to auscultation bilaterally Cardiovascular Rate/Rhythm: regular rate and regular rhythm Neurologic moves all extremities Psychiatric Orientation: alert and oriented x 3 Testing Laboratory Results 01/03/25 12:20 01/03/25 12:20 01/04/25 01/03/25 06:17 20:08 POC Glucose 113 H 155 H
[2025-01-04] MEDS ORDERED: PHENYLEPHRINE HCL 10 MG/ML VIAL ONE (07:12)
--- NOTE | 2025-01-04 07:14 | History & Physical Bridge Note ---
Date of Service January 04, 2025 History & Physical Bridge Note I have examined the patient, reviewed the History & Physical and in the interval since the performance of the History & Physical I have noted the following changes of clinical significance: no changes noted. OK for the planned LeFort I fracture repair
[2025-01-04] MEDS ORDERED: HYDROmorphone INJ 1 MG/ML SYRINGE IV PRN (07:47)
[2025-01-04] MEDS ORDERED: ONDANSETRON INJ 2 MG/ML 2 ML VIAL IV PRN (07:47)
[2025-01-04] MEDS ORDERED: ATROPINE SULFATE 0.1 MG/ML 10ML SYR IV PRN (07:47)
--- NOTE | 2025-01-04 07:48 | Communication Note ---
Date of Service: January 04, 2025 pt is on jardiance and not held three days prior to anesthesia. will need post op blood ketones to monitor for euglycemic ketoacidosis
[2025-01-04] MEDS ORDERED: ePHEDrine sulfate 50 MG/5 ML SYR ONE (08:03)
[2025-01-04] MEDS ORDERED: SUGAMMADEX SODIUM 200 MG/2 ML VIAL IV ONE (08:03)
[2025-01-04] MEDS ORDERED: ceFAZolin 330 MG/ML 1 GM VIAL ONE (08:03)
[2025-01-04] MEDS: CHLORHEXIDINE GLUCONATE 0.12% 480 ML MT ONE (08:19)
[2025-01-04] MEDS: TRIAMCINOLONE ACET 0.1% OINT 15 GM TUBE ONE (08:19)
[2025-01-04] MEDS: BUPIVACAINE/EPINEPHRINE 0.5% 1:200,000 1.8 ML CARP ONE (09:11)
--- NOTE | 2025-01-04 09:33 | Post Operative Brief Note ---
PG Immediate Post Op with CF Date of Surgery January 04, 2025 Pre & Post Diagnosis Operation Date: 01/04/25 07:15 Pre-Op Diagnosis: LeFort I fracture, Contusion of face, Anemia, and Edentulous maxilla Post-Op Diagnosis: LeFort I fracture, Contusion of face, Anemia, and Edentulous maxilla I identified the patient and participated in the time-out.: Yes Procedure Operation Date: 01/04/25 07:15 Actual Procedures p Open Reduction Lefort 1 Fracture(Not Applicable) - Krish Alexander DMD Surgeon Krish Alexander, STEVEN Clin Nurse none Estimated Blood Loss 10 Findings Consistent with Post-Op Diagnosis fractured maxilla LeFort I level Specimens Specimen Description: None per surgeon. Complications none Disposition Accompanied Patient To Recovery: Yes
--- NOTE | 2025-01-04 10:09 | Anesthesiology Progress Note ---
Date of Service January 04, 2025 Anesthesia Post Procedure Vital Signs Vital Signs: Temp Pulse Pulse Resp BP BP Pulse Ox 01/04/25 10:00 72 14 172/72 H 100 01/04/25 09:50 76 21 172/76 H 100 01/04/25 09:40 78 17 174/77 H 100 01/04/25 09:32 36.4 C L 79 15 180/83 H 97 01/04/25 06:44 36.7 C 61 15 125/62 99 01/03/25 21:32 61 125/70 01/03/25 18:43 36.8 C 62 16 147/59 H 99 01/03/25 18:00 68 17 98 01/03/25 17:09 63 19 98 01/03/25 17:00 124/67 01/03/25 16:16 01/03/25 16:16 60 16 118/64 98 01/03/25 16:03 63 18 118/64 99 01/03/25 15:28 60 01/03/25 15:00 68 20 126/61 99 01/03/25 14:02 58 L 01/03/25 14:00 61 17 126/61 99 01/03/25 13:29 57 L 16 164/62 H 99 01/03/25 13:29 59 L 14 94 01/03/25 11:50 36.2 C L 71 18 123/65 100 O2 Del Method O2 Flow Rate 01/04/25 10:00 Room Air 0 01/04/25 09:50 Room Air 0 01/04/25 09:40 Oxymask 4 01/04/25 09:32 Oxymask 4 01/04/25 06:44 Room Air 01/03/25 21:32 01/03/25 18:43 Room Air 01/03/25 18:00 01/03/25 17:09 01/03/25 17:00 01/03/25 16:16 Room Air 01/03/25 16:16 Room Air 01/03/25 16:03 01/03/25 15:28 01/03/25 15:00 01/03/25 14:02 01/03/25 14:00 01/03/25 13:29 Room Air 01/03/25 13:29 Room Air 01/03/25 11:50 Room Air Pain Intensity Face: Pain Intensity: 7 Transfer of Care Handoff Completed per policy Notes Mental Status: alert / awake / arousable and participated in evaluation Patient Amnestic to Procedure: Yes Nausea / Vomiting: adequately controlled Pain: adequately controlled Airway Patency, RR, SpO2: stable & adequate BP & HR: stable & adequate Hydration State: stable & adequate Anesthetic Complications: no major complications apparent and Pt Satisfied with anesthetic care
[2025-01-04] MEDS: HYDROmorphone INJ 0.5 MG/0.5 ML SYR IV PRN (11:23)
[2025-01-04] MEDS ORDERED: Nursing to Pharmacy Communication SCH (13:45)
[2025-01-04] MEDS: AMOXICILLIN/CLAVULANATE 875 MG TAB PO ONE (13:58)
[2025-01-04] MEDS: CYANOCOBALAMIN (B-12) 500 MCG TABLET PO SCH (13:59)
[2025-01-04] MEDS: LOSARTAN POTASSIUM 25 MG TAB PO SCH (14:18)
--- NOTE | 2025-01-04 15:49 | Hospitalist Progress Note ---
Date of Service January 04, 2025 Assessment & Plan (1) LeFort I fracture: Plan 79M with PMH including CAD, NIDDM, HLD, LAWSON not on CPAP, who presents with facial fracture. #LeFort I fx -Secondary to mechanical fall on 12/30/2024 in [facility] -CT confirming fracture - Has been on Augmentin 825 mg twice daily since 12/31/2024 Status post open reduction D-Forte 1 fracture on 01/04/2025 Appreciate oropharyngeal surgery input and recommendation Will continue Augmentin 875 twice daily to finish the course Likely discharge tomorrow Pain seems to be controlled #Pre op evaluation -He has non obstructive CAD and is very concerned about his cardiac history, will ask cardio to evaluate - EKG has been unremarkable Does not have any cardiac symptoms with usual exertion No further evaluation prior to surgery needed #CAD -History of balloon angioplasty in 90s. No stent was placed -Recent [facility] 2024 in [place], non obstructive CAD per patient. no report available -TTE 04/05/24, normal EF -Follows with cardio as OP, appreciate input -Holding home ASA for OR tomorrow -Continue statin and atenolol -Will continue his usual medications on discharge #NIDDM -On jardiance and metformin BID -Holding metformin for now -SSI BGM ACHS -Will check ketones #HLD #LAWSON, not on CPAP Admission and Anticipated Discharge Date Admission Date: January 03, 2025 Subjective 01/04/2025 The patient was seen and examined in medical floor in presence of her family members He suffered a mechanical fall on of this month at [facility] He is status post open reduction Le [place] I fracture on 01/04/2025 Has been feeling much better but complains of some headache Review of Systems Review of Systems: All systems reviewed and are unremarkable except as noted below Physical Exam Physical Exam: Sitting on a chair without any acute distress Constitutional: + ill appearing and + thin Eyes: PERRL, conjunctivae normal, anicteric sclerae ENMT: external ear and nose normal, oropharynx normal (Status post surgery on upper jaw, the area is bandaged) Neck: trachea midline, no thyromegaly Respiratory: no respiratory distress Auscultation: lungs clear to auscultation bilaterally Cardiovascular: Rate/Rhythm: regular rate and regular rhythm; not tachycardic Heart Sounds: normal S1 and normal S2; no murmur Extremities: no edema Gastrointestinal (Abdomen): Inspection/Auscultation: normal bowel sounds; abdomen not distended Percussion/Palpation: abdomen soft; abdomen nontender Musculoskeletal: No acute arthritis involving any of the joint Neurologic: normal touch/pain/proprioception and moves all extremities; not confused Lymphatic: no cervical or axillary lymphadenopathy Results & Data Results & Data Vital Signs (Past 12 Hours) Vital Signs Temp Pulse Pulse Resp BP Pulse Ox O2 Del Method 01/04/25 14:00 36.8 C 87 16 154/66 H 97 Room Air 01/04/25 12:45 84 16 164/81 H 96 Room Air 01/04/25 11:45 36.7 C 78 166/72 H 98 Room Air 01/04/25 11:15 36.7 C 60 76 12 177/69 H 100 Room Air 01/04/25 10:45 36.6 C 75 16 174/71 H 97 Room Air 01/04/25 10:40 36.4 C L 75 12 168/78 H 98 Room Air 01/04/25 10:30 72 12 169/98 H 100 Room Air 01/04/25 10:20 72 10 L 174/86 H 100 Room Air 01/04/25 10:10 70 15 172/76 H 99 Room Air 01/04/25 10:00 72 14 172/72 H 100 Room Air 01/04/25 09:50 76 21 172/76 H 100 Room Air 01/04/25 09:40 78 17 174/77 H 100 Oxymask 01/04/25 09:32 36.4 C L 79 15 180/83 H 97 Oxymask 01/04/25 06:44 36.7 C 61 15 125/62 99 Room Air O2 Flow Rate 01/04/25 14:00 01/04/25 12:45 01/04/25 11:45 01/04/25 11:15 01/04/25 10:45 01/04/25 10:40 0 01/04/25 10:30 0 01/04/25 10:20 0 01/04/25 10:10 0 01/04/25 10:00 0 01/04/25 09:50 0 01/04/25 09:40 4 01/04/25 09:32 4 01/04/25 06:44 Medications Administered Current Inpatient Medications Acetaminophen (Acetaminophen 325 Mg Tab) 650 mg PO Q4H PRN PRN Reason: pain/fever Stop: 02/02/25 15:34 Last Admin: 01/04/25 02:55 Dose: 650 mg Amoxicillin/Clavulanate Potassium (Amoxicillin/Clavulanate 875 Mg Tab) 1 tab PO BIDM SOPHIE; Protocol Stop: 01/11/25 19:59 Atenolol (Atenolol 25 Mg Tablet) 12.5 mg PO HS SOPHIE Stop: 02/02/25 20:59 Last Admin: 01/03/25 21:33 Dose: 12.5 mg Atorvastatin Calcium (Atorvastatin 40 Mg Tab) 40 mg PO HS SOPHIE Stop: 02/02/25 20:59 Last Admin: 01/03/25 21:33 Dose: 40 mg Cyanocobalamin (Cyanocobalamin (B-12) 500 Mcg Tablet) 1,000 mcg PO QDL SOPHIE Stop: 02/03/25 11:29 Last Admin: 01/04/25 13:59 Dose: Not Given Dextrose (Dextrose 50% 50 Ml Syringe) 25 - 50 ml IV UD PRN; Protocol PRN Reason: Hypoglycemia Protocol Stop: 02/02/25 15:34 Glucagon (Glucagon For Inj 1 Mg Vial) 1 mg SQ UD PRN; Protocol PRN Reason: Hypoglycemia Protocol Stop: 02/02/25 15:34 Glucose (Glucose 40% Gel 15 Gm Tube) 15 - 30 gm PO UD PRN; Protocol PRN Reason: Hypoglycemia Protocol Stop: 02/02/25 15:34 Glucose (Glucose 10 Tab/Tube) 4 - 8 tab PO UD PRN; Protocol PRN Reason: Hypoglycemia Protocol Stop: 02/02/25 15:34 Heparin Sodium (Porcine) (Heparin Sod 5,000 Unit/0.5 Ml Vial) 5,000 units SQ Q12 SOPHIE Stop: 02/02/25 20:59 Last Admin: 01/04/25 13:19 Dose: Not Given Hydromorphone HCl (Hydromorphone Inj 1 Mg/Ml Syringe) 0.25 mg IV Q5M PRN PRN Reason: PACU Use Only-Pain Stop: 01/04/25 15:47 Hydromorphone HCl (Hydromorphone Inj 0.5 Mg/0.5 Ml Syr) 0.5 mg IV Q6H PRN PRN Reason: Pain Stop: 01/18/25 10:59 Last Admin: 01/04/25 11:23 Dose: 0.5 mg Insulin Aspart (Insulin Aspart Per Unit Charge) 0 units SC ACHS [facility] Stop: 02/02/25 16:29 Last Admin: 01/04/25 11:43 Dose: Not Given Losartan Potassium (Losartan Potassium 25 Mg Tab) 12.5 mg PO Q24H [facility] Stop: 02/03/25 15:59 Last Admin: 01/04/25 14:18 Dose: 12.5 mg Miscellaneous (Order Awaiting Action Empagliflozin 10 Mg Tab) 1 each N/A QS [facility] Stop: 02/02/25 15:59 Last Admin: 01/04/25 10:56 Dose: Not Given Miscellaneous (Carbohydrates For Hypoglycemia ) 15 - 30 gm PO UD PRN PRN Reason: Hypoglycemia Protocol Stop: 02/02/25 15:34 Ondansetron HCl (Ondansetron Inj 2 Mg/Ml 2 Ml Vial) 4 mg IV Q6H PRN PRN Reason: Nausea Stop: 02/02/25 15:34 (1) LeFort I fracture Encounter type: initial encounter Fracture type: closed Qualified Code(s): S02.411A - LeFort I fracture, initial encounter for closed fracture
[2025-01-04] MEDS: AMOXICILLIN/CLAVULANATE 875 MG TAB PO SCH (20:35)
[2025-01-05 07:15] VITALS: BP 139/68; PULSE 65; RESP 16; TEMP 98.8; O2SAT 98
[2025-01-05 07:16] LABS: Hematocrit (blood only) 36.7 % (42.0-52.0); Hemoglobin 11.4 g/dl (14.0-18.0); Immature Granulocytes # (auto) 0.03 K/uL (0.01-0.20); Immature Granulocytes % (auto) 0.5 %; Mean Corpuscular Hemoglobin 25.9 pg (25.0-34.0); Mean Corpuscular Volume 83.2 fL (80.0-100.0); Platelet Count 181 K/uL (130-400); RDW Standard Deviation 44.9 fL (36.4-46.3); Red Blood Count 4.41 M/uL (4.70-6.10); White Blood Count 6.23 K/ul (4.8-10.8)
[2025-01-05 07:36] LABS: Anion Gap 5.0 (3-11); Blood Urea Nitrogen 26.0 mg/dl (6-23); Calcium 9.8 mg/dl (8.6-10.3); Carbon Dioxide 30.0 mmol/L (21-32); Chloride 103.0 mmol/L (98-107); Creatinine Clr Calc Pharmacy 32.4 ml/min; Glucose 140.0 mg/dl (70-99(Fasting)); Magnesium 2.3 mg/dl (1.7-2.4); Potassium 4.7 mmol/L (3.5-5.1); Sodium 138.0 mmol/L (136-145)
--- NOTE | 2025-01-05 10:05 | Progress Note ---
Date of Service January 05, 2025 Assessment & Plan Admission and Anticipated Discharge Date Admission Date: January 03, 2025 Subjective Trauma surgery post op note at 24 hours Excellent result, ROM improving Sutures in place Tissue tone, gingival tissue--excellent Occlusion very stable with a reproducible bite. No TMJ issues-pain, nose, pop. No nasal congestion or bleeding, septum well positioned. No sinus issues Facial alignment excellent Reviewed post op care--diet, oral care, use of dentures and activities. Next appointment set up for: January 12 at 11:30 Overall excellent result from recent repair of maxillary fracture surgery RTC for continued follow up aept 4 at 11:30 Rx Augmentin called into pharmacy Results & Data Vital Signs (Past 12 Hours) Vital Signs Temp Pulse Resp BP Pulse Ox O2 Del Method 01/05/25 07:14 37.1 C 65 16 139/68 98 Room Air 01/05/25 04:30 36.7 C 66 18 120/64 95 Room Air 01/05/25 00:29 36.8 C 70 16 118/58 L 96 Room Air PG Care Time/CCT Total # of Minutes Spent Total Time Spent with Patient: Total time spent is greater than 50% in coordination of care (as documented) at patient's floor/unit and/or counseling patient: Coding Level of Care Code None
--- NOTE | 2025-01-05 10:33 | Discharge Summary ---
Date of Service January 05, 2025 Admission HPI Per Admitting Provider Mr. Barr is a pleasant 79M with PMH including CAD, NIDDM, HLD, LAWSON not on CPAP, who presents with facial fracture. Patient was in [facility] where he suffered a mechanical fall while going down the elevator. Denies prodromal symptoms. No LOC. He did land on his face. In [facility], he went to a trauma center and was evaluated by ENT who did not recommend surgery at that time. He immediately flew home and then presented to [facility] yesterday for second opinion. Yesterday, ED d/w surgery who recommended surgery. Patient was not ready for surgery and went home last evening. He presents today, now agreeable f or surgery. Patient denies F/C, CP, palpitations, SOB, dyspnea, abd pain, N/V/D Admission Exam Per Admitting Provider Vitals and labs reviewed General: Well appearing, NAD HEENT: EOMI, PERRLA. Ecchymoses over maxillary bone. no obvious deformity Neck: Supple Cardiac: RRR no rubs gallops or murmurs Lungs: CTA no rhonchi wheezing or rales Abd: S NT ND BS positive MSK: Full ROM. No obvious deformities Ext: No Edema cyanosis Skin: Warm, Dry Neuro: AOx3 No focal deficits. Psych: Normal Mood Principal Diagnosis LeFort I fx s/p repair of LeFort I fracture mechanical fall Discharge Exam Sitting on a chair without any acute distress Constitutional + thin Eyes PERRL, conjunctivae normal, anicteric sclerae ENMT external ear and nose normal, oropharynx normal (Status post surgery on upper jaw.) b/l cheeks swollen w/ minimal bruise Neck trachea midline, no thyromegaly Respiratory no respiratory distress Auscultation: lungs clear to auscultation bilaterally Cardiovascular Rate/Rhythm: regular rate and regular rhythm; not tachycardic Heart Sounds: normal S1 and normal S2; no murmur Extremities: no edema Gastrointestinal (Abdomen) Inspection/Auscultation: normal bowel sounds; abdomen not distended Percussion/Palpation: abdomen soft; abdomen nontender Neurologic normal touch/pain/proprioception and moves all extremities; not confused Lymphatic no cervical or axillary lymphadenopathy Discharge Data Allergies Allergy/AdvReac Type Severity Reaction Status Date / Time No Known Allergies Allergy Unverified 01/02/25 17:15 Consultations 01/03/25 12:05 ED Decision to Admit Stat Procedures Performed Operation Date: 01/04/25 07:15 Actual Procedures p Open Reduction Lefort 1 Fracture(Not Applicable) - Krish Alexander, STEVEN Hospital Course (1) LeFort I fracture: Plan Per prior attending w/ Addendum: 79M with PMH including CAD, NIDDM, HLD, LAWSON not on CPAP, who presents with facial fracture. #LeFort I fx -Secondary to mechanical fall on 12/30/2024 in [facility] -CT confirming fracture - Has been on Augmentin 825 mg twice daily since 12/31/2024 Status post open reduction D-Forte 1 fracture on 01/04/2025 Appreciate oropharyngeal surgery input and recommendation Will continue Augmentin 875 twice daily to finish the course Likely discharge tomorrow Pain seems to be controlled #Pre op evaluation -He has non obstructive CAD and is very concerned about his cardiac history, will ask cardio to evaluate - EKG has been unremarkable Does not have any cardiac symptoms with usual exertion No further evaluation prior to surgery needed #CAD -History of balloon angioplasty in 90s. No stent was placed -Recent [facility] 2024 in [place], non obstructive CAD per patient. no report available -TTE 04/05/24, normal EF -Follows with cardio as OP, appreciate input -Holding home ASA for OR tomorrow -Continue statin and atenolol -Will continue his usual medications on discharge #NIDDM -On jardiance and metformin BID -Holding metformin for now -SSI BGM ACHS -Will check ketones #HLD #LAWSON, not on CPAP Addendum 01/02/2025: Patient seen and examined at bedside, he was ambulating in the hallway. Hemodynamically stable. Dr. Alexander has cleared him for discharge with 6 days of antibiotic. Patient reports pain under control. Patient advised to take Tylenol for ongoing pain management and follow-up with Dr. Alexander upon discharge. He is being discharged with following instructions at the point of discharge: Follow-up with your primary care physician within a week time and likely you will need labs CBC/CMP/magnesium/phosphorus. Follow-up with Dr. Alexander on January 12 at 11:30 AM. You are being discharged on antibiotics [Augmentin] for 6 more days, take them as prescribed. Take your medications as prescribed. Please make sure that you are able to get your medications today by calling your pharmacy before you leave the hospital so that your treatment continuity is not broken. Home Health Attestation I certify that this patient is under my care and that I, or a physicians middle school assistant principal working with me, had a face to-face encounter that meets the home health [id number]-ollp encounter requirements with this patient. The encounter with the patient was in whole, or in part, for the following medical condition, which is the primary reason for home health care (list medical condition): I certify that, based on my findings, the following services are medically necessary home health services: My clinical findings support the need for the above services because: Further, I certify that my clinical findings support that this patient is homebound (i.e. absences from home require considerable and taxing effort and are for medical reasons or christian services or infrequently or of short duration when for other reasons) because: Certification for Home Health Services: Based on the above findings, I certify that this patient is confined to the home and needs intermittent care home care, physical therapy and/or speech therapy or continues to need occupational therapy. The patient is under my care, and I have initiated the establishment of the plan of care. This patient will be followed by a physician who will periodically review the plan of care. Total Time Total Time Spent Total Time Spent (In Minutes): 40 Discharge Plan Discharge Items Patient Disposition: Home - Self-Care Reason For Visit: LEFORT I FRACTURE Discharge Diagnosis: LeFort I fx s/p repair of LeFort I fracture mechanical fall Condition on Discharge: Fair Activity: Resume your previous activity Lifting: Gradually increase as tolerated Bathing: No limitations Exercise/Sports: Wait until after follow-up appointment Driving/Machine Use: Resume 1 day after discharge Weightbearing: Full weightbearing Non-emergency contact: Surgeon Call non-emergency contact if: your temperature is above 101.5, your wound has increased redness, your wound has increased drainage and your wound pain has increased Follow-up/Referrals: Pam Barr MD [Primary Care Provider] - (Date & Time 01/12/2025 11:20 AM Provider: Pam Barr MD General Internal Medicine [facility] ) Krish Alexander DMD [Physician] - 01/12/25 11:30 am Diet: Full liquid and Clear liquid Diet Texture: Dental soft (bite-sized) Diet Comment: any soft foods are OK to eat Addtl Attending Provider Instructions: GENERAL POST-OPERATIVE INSTRUCTIONS FOR PATIENTS HAVING JAW SURGERY POST-OP INSTRUCTIONS FOLLOW UP APPOINTMENT --- AT 11:30 AM BLEEDING: Will be under control by the time you leave our operating room. Some oozing or blood-tinged saliva may persist for up to 24 hours. Should excessive bleeding occur call the office or Dr. Alexander. Expect nasal oozing for a few days. This also will occur after getting up or after you shower. PAIN: Is best controlled by the medications recommended. They are most effective when taken before the local anesthesia diminishes and normal sensation returns to the area. Do not take pain pills on an empty stomach. Narcotic pain medication such as Vicodin or Percocet may cause nausea, vomiting, drowsiness, dizziness, itching or constipation. If these side effects occur, discontinue the medication. You may take an alternative over the counter pain medication (Tylenol or Motrin) as necessary or call our office for assistance. SWELLING: May occur immediately and increase gradually over 24-48 hours. Swelling from the surgical procedure will maximize at 48-72 hours. Ice packs applied externally to the area at 20 minute intervals throughout the day of surgery may help control swelling, but only use them if advised to by our office. Sleeping with the head of bed elevated above the level of the heart for the first two post-operative nights may tend to lessen swelling. NAUSEA: May result from a general anesthetic or the drugs prescribed for pain. Drinking a small glass of a carbonated beverage will generally control mild nausea. If not controlled, call the office. The Zofran ODT may be used as instructed. DIET: Soft foods and liquids Avoid hot, spicy foods. Do not smoke. ORAL HYGIENE: Should not be neglected. [place] your teeth as usual and rinse with warm salt water after each meal beginning gently the night of surgery. Use Peridex twice a day. Other mouth rinses can be used to keep your mouth clean. ACTIVITY: Should be restricted to a minimum for the first 7 -10 days. Strenuous work or exercise may promote bleeding. If you have had a general anesthetic or sedation, we must require that you be accompanied home by a responsible adult and an adult stays with you until recovered from the effects of the anesthesia. Under no circumstances are you to drive a car for at least 24 hours. FEVER: After surgery it is normal for the body temperature to be slightly elevated for 24 hours. SIDE EFFECTS: Such as an ear ache, temporary ache of adjacent teeth, restricted mouth opening, stretching or cracking at the corners of the mouth or discoloration of the skin may occur postoperatively. These are temporary conditions that will improve as healing progresses. As a result of the surgery your bite will feel off, this is normal. Your lower and upper lip will also feel numb as a result of the surgery; over time this will subside. EMERGENCIES: In case of profuse bleeding, uncontrolled pain, persistent nausea or abnormal elevation of temperature, if you have any questions about these instructions or your surgery please call our office or Dr. Morales cell phone. Our goal is to make this procedure as safe and pleasant as possible. Email Dr. Alexander---[email or web address] Phone Dr. Alexander after hours and weekends, Phone (office) [phone] [facility] [employer] Provider Instructions: Follow-up with your primary care physician within a week time and likely you will need labs CBC/CMP/magnesium/phosphorus. Follow-up with Dr. Alexander on January 12 at 11:30 AM. You are being discharged on antibiotics [Augmentin] for 6 more days, take them as prescribed. Take your medications as prescribed. Please make sure that you are able to get your medications today by calling your pharmacy before you leave the hospital so that your treatment continuity is not broken. Pending Studies at Discharge: No Stand-Alone Forms: My [facility] [place], Smoking Cessation Medications and DC Order Prescriptions: New Probiotic 3 billion cell capsule 3,000 mmu cells PO DAILY 7 Days Qty: 7 0RF Rx Instructions: administer with a meal Continued aspirin 81 mg Tablet,Delayed Release (Dr/Ec) 81 mg PO QAM Qty: 0 Centrum Silver Men 330-52-879-300 mcg Tablet 1 tab PO QAM Qty: 0 atenolol 25 mg Tablet 12.5 mg PO HS Qty: 0 metformin 500 mg Tablet Extended Release 24 Hr 500 mg PO BID Qty: 0 Rx Instructions: W/ Lunch and Dinner losartan 25 mg Tablet 12.5 mg PO QDL 30 Days Qty: 15 amoxicillin-pot clavulanate 875-125 mg tablet 1 tab PO Q12H Qty: 12 0RF atorvastatin 40 mg tablet 40 mg PO HS cyanocobalamin (vitamin B-12) [Vitamin B-12] 1,000 mcg Tablet 1,000 mcg PO QDL nitroglycerin 0.4 mg tablet, sublingual 0.4 mg sublingual DIRECTED PRN (Reason: Chest Pain) Jardiance 10 mg tablet 10 mg PO QAM Discharge Orders: Discharge Order (Routine); Ordered 01/05/25 Ordered By: Chiara Watkins Admission Data Admit Date/Time: 01/03/25 12:32 Attending Provider: Chiara Watkins Admit Provider: Jose Harding Primary Care Provider: Pam Barr Other Providers: Jose Harding
[2025-01-05] MEDS ORDERED: LOSARTAN POTASSIUM 25 MG TAB PO SCH (11:30)
--- NOTE | 2025-01-07 05:50 | Electrocardiogram Report ---
Test Reason : Blood Pressure : */* mmHG Vent. Rate : 69 BPM Atrial Rate : 69 BPM P-R Int : 196 ms QRS Dur : 90 ms QT Int : 364 ms P-R-T Axes : 60 26 34 degrees QTcB Int : 390 ms Normal sinus rhythm Septal infarct (cited on or before 01-Mar-2016) Abnormal ECG When compared with ECG of 02-Mar-2016 06:50, No significant change was found Confirmed by Napoleon Booker ([id number]) on 01/07/2025 5:50:02 AM Referred By: REFERRED SELF Confirmed By: Napoleon Booker
--- NOTE | 2025-01-16 21:40 | Operative Report ---
PG Post Operative Report Pre & Post Diagnosis Operation Date: 01/04/25 07:15 Pre-Op Diagnosis: LeFort I fracture, Contusion of face, Anemia, and Edentulous maxilla Post-Op Diagnosis: LeFort I fracture, Contusion of face, Anemia, and Edentulous maxilla I identified the patient and participated in the time-out.: Yes Procedure Operation Date: 01/04/25 07:15 Actual Procedures p Open Reduction Lefort 1 Fracture(Not Applicable) - Krish Alexander DMD Surgeon Krish Alexander DMD Shactor none Estimated Blood Loss 10 Findings Consistent with Post-Op Diagnosis malposed and unstable upper jaw Specimens none Drains none Anesthesia Type General Complications none Disposition Accompanied Patient To Recovery: Yes Indications fractured upper jaw Description of Procedure Diagnoses Open [place] I fracture with routine healing, subsequent encounter S02.411G CPT Codes OPN TX LEFORT I - [id number] Pre-Op Diagnosis: LeFort I fracture opened Post-Op Diagnosis: LeFort I fracture opened Diagnosis ICD 10 CPT LEFORT I S02.411G 62426 p Open Reduction Internal Fixation of Maxillary CPT 16691 - Krish Alexander DMD Surgeon Krish Alexander DMD OPERATION IN DETAIL: After this patient was cleared to undergo general, The patient was placed under general anesthesia via a oral tracheal intubation. This was a very difficult intubation for the anesthesia department. Due to many missing teeth we were able to use an oral tube and still obtain adequate fixation of the upper and lower jaws. After an appropriate time-out was taken to ensure that we had Mr. Conrad Barr in our operating room with the proper equipment. After everyone agreed, the operation began. The patient was deeply anesthetized and the tubes were secured. The patient was prepped and draped in the usual manner. Given the nature of the fracture, an open reduction approach will be used for the LeFort I Open Reduction of the Maxillary LeFort I fracture CPT 34229 I turned my attention now to the fractured maxilla. This patient has a classic LeFort I fracture with separation in the classic LeFort I fashion at the subnasal and alveolar process.The maxillary complex was deviated to the left with a loose maxilla and malocclusion with the dentures in place. The maxillary segment was fractured resulting in a posterior displacement of the maxilla with open bite with dentures in place the maxilla was also loose and moved with junction. There was also a fracture involving the right/left lateral sinus well with multi comminutions. To accomplish the reduction of this[place] Fort I fracture a maxillary osteotomy incision of the soft tissue was carried out. An electrocautery instrument was used to make an incision from the 1st bicuspid area on the right side across the midline to the opposite bicuspid area. The tissues reflected in the usual manner to expose the mucoperiosteal tissue and to get good exposure of the anterior nasal spine, the maxillary anterior and posterior alveolar and the piriform rims. In addition I was able to get good visualization of the left posterior maxilla and noted the the buttress was a clean fracture and would act a stable posterior vertical support and starting point. The piriform rims were also stable and with digital manipulations I was able to align the stable bone into a true anatomic relationship. These stable bone areas will be the starting point for the plate stabilization of the fractured maxilla. Once the tissue was was reflected I was able to get a good idea of the fracture anatomy and density of the bone to plan the direct fixation process. I was able to then reflect posteriorly to get good access to the pterygoid plate areas. I then spent a lot of time dissecting superior to ensure that we had good visualization of the stable bone. Once I was able to reduce the LeFort I fracture I had excellent alignment of the fracture sites. To establish a stable occlusion I was able to place the upper denture and noted the occlusion was stable and aligned perfectly. Using the upper denture as the guide I placed the upper and lower jaws in an ideal occlusion position I was able to line up the LeFort I fracture. Starting posterior I was able to bend bone plates and placed them with fixation screws. Once I was able to achieve superior stability of the fractured left segment. I was now able to plate the right piriform rim. Once the right side was completed I placed addition plates in the anterior area. Once this was done the stability of the LeFort fracture was excellent. I irrigated the maxillary sinuses of any debris and/or polyps that were noted. Hemostasis was in good control.I noted that the maxilla was now positioned in its natural position. The hemostasis was in control and all bony margins were stable and in excellent position. I now replaced the upper denture and noted that I had a very stable maxilla regarding a reproducible occlusion The maxilla was stable and in the correct occlusion position, the maxilla was stable lateral, superior and transversely. The upper denture fit very well and I will plan to keep the denture in place to allow stability to the occasion. Soft tissue closure To ensure proper closure with good anatomical form, I was able to grasp the alar cartilages on both the right and left side and then using a the Vicryl suture, I was ableto perform an alar cinch technique to ensure good positioning of the lateral alar cartilages of the nose and to establish good base anatomy of the nose. Once this was done, I made sure that the nasal septum was well positioned in the midline. Being satisfied with this, I then began the V-Y closure using 4-0 Vicryl suture of the mucosal tissue starting in the midline and then closed laterally on either side to ensure an even contouring of the tissue. When all was said and done, we had excellent closure of the soft tissue with great support of the nose. Recovery Phase: At this time the sponge and instruments count was correct. I passed an OG tube. The patient was allowed to recover in the usual manner and then once fully recovered moved to the recovery room. Because of the excellent stability of the maxilla at the LeFort I no fixation was needed. Post op plans: My plan is to keep the patient on a very soft diet with his upper denture in place Outcome: Mr Barr was now transported in stable condition to post anesthesia recovery area. The patient tolerated the surgical procedure and anesthesia extremely well and I anticipate an uneventful postoperative recovery The patient was allowed to awake from the anesthesia. Once full awake the anesthesia tube was removed and the patient was taken to the recovery room with all vital sign stable. The patient tolerated the surgery very well. I will follow the patient in my office, Rx and instructions will be given upon discharge. I attest to the content of the Intraoperative Record and any orders documented therein. Any exceptions are noted below.
== END 2025-01-05 11:29 | disposition home or self-care (01) | DRG 142 ==
LOC: ED 11:44 → EDINP 12:32 → SUATTDRO 12:32 → EDINP 15:35 → 3W 18:40